=== PATIENT | female | born 1965 | race Caucasian/White ===

== ENCOUNTER → 2024-02-15 06:27 | Day surgery (SDC) | payer BC, SELFPAY | LOC: GI 06:27 | PROVIDERS: ATTENDING PHYSICIAN Specialist | DX: Z12.11 Encounter for screening for malignant neoplasm of colon (principal); D12.4 Benign neoplasm of descending colon; K57.30 Diverticulosis of large intestine without perforation or abscess without bleeding | CPT/HCPCS: 45385; 88305 ==

== ENCOUNTER → 2024-05-30 08:23 | Outpatient (REF) | payer BC, SELFPAY | LOC: WDC 08:23 | PROVIDERS: ATTENDING PHYSICIAN Family Medicine | DX: Z12.31 Encounter for screening mammogram for malignant neoplasm of breast (principal) | CPT/HCPCS: 77063; 77067 ==

== ENCOUNTER → 2024-11-11 15:06 | Outpatient (REF) | payer BC, SELFPAY | LOC: RAD 15:06 | PROVIDERS: ATTENDING PHYSICIAN Internal Medicine Rheumatology; FAMILY PHYSICIAN Family Medicine | DX: M25.572 Pain in left ankle and joints of left foot (principal); M32.9 Systemic lupus erythematosus, unspecified | CPT/HCPCS: 73610 ==

== ENCOUNTER → 2025-06-19 11:24 | Outpatient (REF) | payer BC, SELFPAY | LOC: RAD 11:24 | PROVIDERS: ATTENDING PHYSICIAN Internal Medicine Rheumatology; FAMILY PHYSICIAN Family Medicine | DX: M81.0 Age-related osteoporosis without current pathological fracture (principal) | CPT/HCPCS: 77080 ==

== ENCOUNTER → 2025-10-07 14:27 | Outpatient (REF) | payer BC, SELFPAY | LOC: RAD 14:27 | PROVIDERS: ATTENDING PHYSICIAN Internal Medicine Rheumatology; FAMILY PHYSICIAN Family Medicine | DX: M54.9 Dorsalgia, unspecified (principal); M81.0 Age-related osteoporosis without current pathological fracture; Z13.820 Encounter for screening for osteoporosis | CPT/HCPCS: 72072; 72100 ==